=== PATIENT | male | born 1965 | race Caucasian/White ===

== ENCOUNTER 2022-05-07 04:18 | Day surgery (SDC) | payer OTHER ==
[2022-05-02 10:41] VITALS: BMI 28.1
[2022-05-07] MEDS ORDERED: BUPIVACAINE HCL/PF 0.75% 10 ML VIAL ONE (07:24)
[2022-05-07] MEDS ORDERED: LIDOCAINE HCL/PF 1% SDV 5ML VIAL ONE (07:24)
[2022-05-07] MEDS ORDERED: LIDOCAINE 1% P/F 10 MG/ML VIAL INF ONE (09:28)
[2022-05-07] MEDS ORDERED: BUPIVACAINE HCL/PF 0.5% (5 MG/ML) 30 ML VIAL IJ ONE (09:29)
[2022-05-07 10:07] VITALS: BP 128/75; PULSE 48; RESP 20; TEMP 96.2
== END 2022-05-07 10:08 | disposition home or self-care (01) ==
LOC: JASU-SURG 04:18
PROVIDERS: ATTEND Pain Medicine Pain Medicine
PROC: BR16YZZ Fluoroscopy of Lumbar Facet Joint(s) using Other Contrast (ICD-10-PCS; 2022-05-07)
PROC: 3E0T3BZ Introduction of Anesthetic Agent into Peripheral Nerves and Plexi, Percutaneous Approach (ICD-10-PCS; principal; 2022-05-07 08:30)
DX: M47.816 Spondylosis without myelopathy or radiculopathy, lumbar region (principal); I10 Essential (primary) hypertension
CPT/HCPCS: 76000-TC-FY

== ENCOUNTER 2023-08-25 15:43 | Emergency (ER) | payer OTHER ==
[2023-08-25 16:13] VITALS: BP 146/84; PULSE 57; RESP 16; TEMP 97.8; BMI 30.4
[2023-08-25 17:26] LABS: HEMATOCRIT 41.7 % (35.4-49); HEMOGLOBIN 13.6 G/dL (11.7-16.9); MCHC 32.6 g/dl (32.0-35.9); MEAN CELL VOLUME 79.8 fl (80-96); PLATELET COUNT 236.4 10^3/uL (134-434); RBC 5.23 10^6/uL (4.00-5.60); RDW 14.9 % (11.9-15.9); WHITE BLOOD COUNT 6.2 10^3/uL (4.0-10.8)
[2023-08-25 17:37] LABS: ALBUMIN 4.2 g/dl (3.4-5.0); BILIRUBIN,TOTAL 0.6 mg/dl (0.2-1); CALCIUM 9.4 mg/dl (8.5-10.1); CREATININE 1.2 mg/dl (0.6-1.3); POTASSIUM 4.2 mmol/L (3.5-5.1); TOT PROT 7.2 g/dl (6.4-8.2)
[2023-08-25 17:53] LABS: PLATELET ESTIMATE ADEQUATE
[2023-08-25] MEDS ORDERED: KETOROLAC TROMETHAMINE 30 MG/1 ML VIAL IVPUSH ONE (19:17)
[2023-08-25] MEDS ORDERED: KETOROLAC TROMETHAMINE 30 MG/1 ML VIAL ONE (19:22)
== END 2023-08-25 19:29 | disposition home or self-care (01) ==
LOC: FER 15:43
PROC: 3E0333Z Introduction of Anti-inflammatory into Peripheral Vein, Percutaneous Approach (ICD-10-PCS; principal; 2023-08-25)
DX: M25.561 Pain in right knee (principal); M79.604 Pain in right leg
CPT/HCPCS: 36415; 72100-TC-FY; 73502-TC-RT-FY; 73562-TC-RT-FY; 80053; 85027; 93971-TC; 99285-25